=== PATIENT | female | born 1960 | race Caucasian/White ===

== ENCOUNTER 2021-09-04 14:26 | Inpatient (IN) | payer OTHER, SELFPAY ==
[~2021-09-04] VITALS: Ht 165.1 cm; Wt 132.5 kg
[2021-09-04 14:34] VITALS: BP_SYST 84
[2021-09-04] MEDS ORDERED: NACL 0.9% 1,000 ML IV ONE ×4 (14:45→23:45)
[2021-09-04 15:44] LABS: BILIRUBIN,URINE NEGATIVE (NEGATIVE); BLOOD, URINE 3+ (NEGATIVE); CLARITY/URINE CLEAR (CLEAR); COLOR,URINE YELLOW (YELLOW); GLUCOSE,URINE 3+ (NEGATIVE); KETONES,URINE 2+ (NEGATIVE); LEUKOCYTE ESTERASE ,URINE NEGATIVE (NEGATIVE); NITRITE, URINE NEGATIVE (NEGATIVE); PROTEIN URINE 1+ (NEGATIVE); UROBILINOGEN,URINE 0.2 (0.2-1.0)
[2021-09-04 15:53] LABS: BASOPHILS # (AUTO) 0.1 K/uL (0.0-0.2); BASOPHILS % (AUTO) 0.5 % (0.0-2.0); EOSINOPHILS # (AUTO) 0.2 K/uL (0.0-0.4); EOSINOPHILS % (AUTO) 0.7 % (0.0-4.0); HEMATOCRIT 43.1 % (36-48); HEMOGLOBIN 10.9 g/dL (12.0-16.0); LYMPHOCYTES # (AUTO) 2.4 K/uL (1.0-5.5); LYMPHOCYTES % (AUTO) 9.6 % (20.5-51.5); MEAN CORPUSCULAR HEMOGLOBIN 25 pg (27-31); MEAN CORPUSCULAR HGB CONC 25 % (32-36); MEAN CORPUSCULAR VOLUME 99 fL (79.0-98.0); MONOCYTES # (AUTO) 1.4 K/uL (0.0-1.0); MONOCYTES % (AUTO) 5.7 % (1.7-9.3); NEUTROPHILS # (AUTO) 20.5 K/uL (1.8-7.7); NEUTROPHILS % (AUTO) 83.5 % (40.0-70.0); PLATELET COUNT (AUTO) 378 K/uL (130-430); RED BLOOD CELL COUNT(AUTO) 4.34 MIL/uL (4.2-6.2); RED CELL DISTRIBUTION WIDTH 18.5 % (9.0-15.0); WHITE BLOOD COUNT (AUTO) 24.6 K/uL (4.8-10.8)
[2021-09-04 16:02] LABS: ANION GAP 28 (5-15); CALCIUM 8.4 mg/dL (8.4-11.0); CHLORIDE 92 mmol/L (98-107); CREATININE 2.62 mg/dL (0.55-1.30); SODIUM SERUM 126 mmol/L (136-145); UREA NITROGEN, BLOOD 55 mg/dL (8-21)
[2021-09-04 16:05] LABS: ALANINE AMINOTRANSFERASE 24 U/L (12-78); ALBUMIN 2.8 g/dL (3.4-4.8); ALCOHOL, BLOOD 3 mg/dL (<10); ASPARTATE AMINOTRANSFERASE 22 U/L (10-37); TOTAL BILIRUBIN 0.4 mg/dL (0.0-1.0)
[2021-09-04 16:19] LABS: ACETAMINOPHEN < 1 ug/mL (1-30)
[2021-09-04 16:20] LABS: BARBITURATE, URINE NEGATIVE (NEG <=200); BENZODIAZEPINE, URINE NEGATIVE (NEG <=150); CANNABINOID, URINE NEGATIVE (NEG <=50); COCAINE, URINE NEGATIVE (NEG <=150); METHAMPHETAMINES SCREEN,URINE NEGATIVE (NEG <=500); OPIATE, URINE NEGATIVE (NEG <=100); PHENCYCLIDINE SCREEN,URINE NEGATIVE (NEG <=25); UR TRICYCLIC ANTIDEPRESSANTS NEGATIVE (NEG <=300); URINE AMPHETAMINE NEGATIVE (NEG <=500); URINE METHADONE NEGATIVE (NEG <=200); URINE OXYCODONE SCREEN NEGATIVE (NEG <=100); URINE PROPOXYPHENE SCREEN NEGATIVE (NEG <=300)
[2021-09-04 16:21] LABS: BACTERIA,URINE RARE /HPF (None Seen); URINE AMORPHOUS URATE 1+ /HPF (None Seen); WBC,URINE 0-3 /HPF (0-3)
[2021-09-04 16:28] LABS: GFR AFRICAN AMERICAN 24 mL/min (>90)
[2021-09-04 16:31] LABS: POTASSIUM 8.1 mmol/L (3.5-5.1)
[2021-09-04 16:32] LABS: GLUCOSE 1081 mg/dL (70-99)
[2021-09-04] MEDS ORDERED: INSULIN NPH/REGULAR 70-30, 100 UNITS/ML, 10 ML VIAL SQ ONE (16:45)
[2021-09-04] MEDS ORDERED: SODIUM BICARBONATE 0.5 MEQ/ML VIAL INJ ONE (16:45)
[2021-09-04] MEDS ORDERED: CALCIUM GLUCONATE 1 GM/10 ML VIAL IVP ONE ×2 (16:45→22:15)
[2021-09-04] MEDS ORDERED: INSULIN REGULAR, HUMAN 100 UNITS in NS 99 ML IV ONE ×2 (16:45)
[2021-09-04] MEDS ORDERED: SODIUM BICARBONATE 8.4% JECT 50 MEQ/50 ML SYRINGE ONE (17:03)
[2021-09-04] MEDS ORDERED: CALCIUM GLUCONATE 1 GM in NS 100 ML IV ONE (17:15)
[2021-09-04] MEDS ORDERED: CEFEPIME 2 GM in D5W 100 ML IV ONE (17:45)
[2021-09-04] MEDS ORDERED: VANCOMYCIN HCL 1,000 MG in NS 250 ML IV ONE (17:45)
[2021-09-04] MEDS ORDERED: LR 1,000 ML IV ONE (18:00)
[2021-09-04] MEDS ORDERED: LORazepam 2 MG/ML VIAL IVP ONE (20:45)
[2021-09-04] MEDS ORDERED: VANCOMYCIN HCL 1000 MG/VIAL IV ONE (20:48)
[2021-09-04] MEDS ORDERED: CEFEPIME 1 GM/VIAL (MAXIPIME) ONE (20:49)
[2021-09-04 21:34] LABS: CALCIUM 8.4 mg/dL (8.4-11.0); CHLORIDE 93 mmol/L (98-107); CREATININE 2.89 mg/dL (0.55-1.30); SODIUM SERUM 128 mmol/L (136-145); UREA NITROGEN, BLOOD 60 mg/dL (8-21)
[2021-09-04] MEDS ORDERED: DEXTROSE 50% JECT 50 ML DISP.SYRIN IVP PRN (21:45)
[2021-09-04 21:46] LABS: ANION GAP 30 (5-15)
[2021-09-04 22:00] LABS: GFR AFRICAN AMERICAN 21 mL/min (>90)
[2021-09-04] MEDS ORDERED: LR 1,000 ML IV SCH (22:00)
[2021-09-04 22:06] LABS: POTASSIUM 7.2 mmol/L (3.5-5.1)
[2021-09-04 22:09] LABS: GLUCOSE 1027 mg/dL (70-99)
[2021-09-04] MEDS ORDERED: INSULIN REGULAR, HUMAN 100 UNITS/ML, 10 ML VIAL IV ONE (22:15)
[2021-09-04] MEDS ORDERED: ALBUTEROL SULFATE 0.083% 2.5 MG/3 ML VIAL.NEB INH ONE (22:15)
[2021-09-04] MEDS ORDERED: LR 2,000 ML IV SCH (22:30)
[2021-09-04 22:33] LABS: HEMATOCRIT 40.3 % (36-48); HEMOGLOBIN 10.7 g/dL (12.0-16.0); MEAN CORPUSCULAR HEMOGLOBIN 25 pg (27-31); MEAN CORPUSCULAR HGB CONC 27 % (32-36); MEAN CORPUSCULAR VOLUME 95 fL (79.0-98.0); PLATELET COUNT (AUTO) 299 K/uL (130-430); RED BLOOD CELL COUNT(AUTO) 4.23 MIL/uL (4.2-6.2); RED CELL DISTRIBUTION WIDTH 18.1 % (9.0-15.0); WHITE BLOOD COUNT (AUTO) 23.7 K/uL (4.8-10.8)
[2021-09-04 22:49] LABS: ANION GAP 29 (5-15); CALCIUM 8.3 mg/dL (8.4-11.0); CHLORIDE 96 mmol/L (98-107); SODIUM SERUM 131 mmol/L (136-145); UREA NITROGEN, BLOOD 59 mg/dL (8-21)
[2021-09-04 22:58] LABS: ALANINE AMINOTRANSFERASE 24 U/L (12-78); ALBUMIN 2.6 g/dL (3.4-4.8); ASPARTATE AMINOTRANSFERASE 38 U/L (10-37); GFR AFRICAN AMERICAN 21 mL/min (>90); PHOSPHORUS 10.6 mg/dL (2.7-4.5); TOTAL BILIRUBIN 0.4 mg/dL (0.0-1.0)
[2021-09-04 23:02] LABS: GLUCOSE 912 mg/dL (70-99); POTASSIUM 6.2 mmol/L (3.5-5.1)
[2021-09-04] MEDS ORDERED: INSULIN REGULAR, HUMAN 10 UNITS/0.1 ML INJ ONE (23:11)
[2021-09-04 23:25] LABS: ACETONE, SERUM MODERATE (NEGATIVE)
[2021-09-05] VITALS (20 sets, daily range): BP systolic 66–136
[2021-09-05 00:39] LABS: BASOPHILS % (MANUAL) 0 % (0-2); EOSINOPHILS % (MANUAL) 0 % (0-7); LYMPHOCYTES % (MANUAL) 8 % (20-46); MONOCYTES % (MANUAL) 2 % (0-11)
[2021-09-05] MEDS ORDERED: NOREPINEPHRINE 4 MG/4 ML VIAL IV ONE ×3 (01:16→20:22)
[2021-09-05] MEDS: INSULIN REGULAR, HUMAN 100 UNITS in NS 99 ML IV PRN ×4 (01:22→12:45)
[2021-09-05] MEDS: NOREPINEPHRINE BITARTRATE 4 MG in NS 246 ML IV PRN ×2 (01:53→05:32)
[2021-09-05] MEDS ORDERED: SODIUM BICARBONATE 8.4% JECT 50 MEQ/50 ML SYRINGE IVP ONE (02:00)
[2021-09-05] MEDS ORDERED: SODIUM BICARBONATE 8.4% JECT 50 MEQ/50 ML SYRINGE ONE (02:16)
[2021-09-05] MEDS ORDERED: LORazepam 2 MG/ML VIAL ONE (02:44)
[2021-09-05 02:58] LABS: BASOPHILS # (AUTO) 0.3 K/uL (0.0-0.2); EOSINOPHILS # (AUTO) 0.2 K/uL (0.0-0.4); EOSINOPHILS % (AUTO) 0.6 % (0.0-4.0); HEMATOCRIT 40.7 % (36-48); HEMOGLOBIN 11.6 g/dL (12.0-16.0); LYMPHOCYTES # (AUTO) 2.8 K/uL (1.0-5.5); LYMPHOCYTES % (AUTO) 8.7 % (20.5-51.5); MEAN CORPUSCULAR HEMOGLOBIN 26 pg (27-31); MEAN CORPUSCULAR HGB CONC 28 % (32-36); MEAN CORPUSCULAR VOLUME 90 fL (79.0-98.0); MONOCYTES # (AUTO) 1.3 K/uL (0.0-1.0); MONOCYTES % (AUTO) 3.9 % (1.7-9.3); NEUTROPHILS # (AUTO) 27.9 K/uL (1.8-7.7); NEUTROPHILS % (AUTO) 85.8 % (40.0-70.0); PLATELET COUNT (AUTO) 288 K/uL (130-430); RED BLOOD CELL COUNT(AUTO) 4.51 MIL/uL (4.2-6.2); RED CELL DISTRIBUTION WIDTH 18.2 % (9.0-15.0)
[2021-09-05 03:22] LABS: ALBUMIN 2.6 g/dL (3.4-4.8); CALCIUM 7.6 mg/dL (8.4-11.0); CREATININE 2.93 mg/dL (0.55-1.30); POTASSIUM 4.2 mmol/L (3.5-5.1); TOTAL BILIRUBIN 0.5 mg/dL (0.0-1.0)
[2021-09-05] MEDS: NACL 0.9% 1,000 ML IV SCH ×5 (03:30→17:11)
[2021-09-05 03:33] LABS: WHITE BLOOD COUNT (AUTO) 32.5 K/uL (4.8-10.8)
[2021-09-05 08:28] LABS: ALBUMIN 2.7 g/dL (3.4-4.8); CALCIUM 7.8 mg/dL (8.4-11.0); CREATININE 2.79 mg/dL (0.55-1.30); POTASSIUM 3.6 mmol/L (3.5-5.1); TOTAL BILIRUBIN 0.4 mg/dL (0.0-1.0)
[2021-09-05] MEDS ORDERED: PIPERACILLIN/TAZO 2.25G/DEX-IS 50 ML IV ONE (08:30)
[2021-09-05] MEDS: carisoprodoL 350 MG TABLET PO SCH ×3 (08:57→21:00)
[2021-09-05 09:36] LABS: BASOPHILS # (AUTO) 0.2 K/uL (0.0-0.2); BASOPHILS % (AUTO) 0.6 % (0.0-2.0); EOSINOPHILS # (AUTO) 0.3 K/uL (0.0-0.4); HEMATOCRIT 39.5 % (36-48); HEMOGLOBIN 11.8 g/dL (12.0-16.0); LYMPHOCYTES # (AUTO) 2.5 K/uL (1.0-5.5); LYMPHOCYTES % (AUTO) 9.3 % (20.5-51.5); MEAN CORPUSCULAR HEMOGLOBIN 25 pg (27-31); MEAN CORPUSCULAR HGB CONC 30 % (32-36); MONOCYTES # (AUTO) 1.1 K/uL (0.0-1.0); MONOCYTES % (AUTO) 4.2 % (1.7-9.3); NEUTROPHILS # (AUTO) 22.5 K/uL (1.8-7.7); NEUTROPHILS % (AUTO) 84.9 % (40.0-70.0); PLATELET COUNT (AUTO) 286 K/uL (130-430); RED BLOOD CELL COUNT(AUTO) 4.66 MIL/uL (4.2-6.2); RED CELL DISTRIBUTION WIDTH 17.4 % (9.0-15.0); WHITE BLOOD COUNT (AUTO) 26.5 K/uL (4.8-10.8)
[2021-09-05] MEDS: NOREPINEPHRINE BITARTRATE 16 MG in NS 234 ML IV PRN ×3 (10:28→20:27)
[2021-09-05 10:48] LABS: BASOPHILS # (AUTO) 0.1 K/uL (0.0-0.2); BASOPHILS % (AUTO) 0.6 % (0.0-2.0); EOSINOPHILS # (AUTO) 0.5 K/uL (0.0-0.4); EOSINOPHILS % (AUTO) 2.5 % (0.0-4.0); HEMATOCRIT 38.5 % (36-48); HEMOGLOBIN 11.9 g/dL (12.0-16.0); LYMPHOCYTES # (AUTO) 1.1 K/uL (1.0-5.5); LYMPHOCYTES % (AUTO) 5.7 % (20.5-51.5); MEAN CORPUSCULAR HEMOGLOBIN 25 pg (27-31); MEAN CORPUSCULAR HGB CONC 31 % (32-36); MEAN CORPUSCULAR VOLUME 82 fL (79.0-98.0); MONOCYTES % (AUTO) 5.6 % (1.7-9.3); NEUTROPHILS # (AUTO) 15.9 K/uL (1.8-7.7); NEUTROPHILS % (AUTO) 85.6 % (40.0-70.0); PLATELET COUNT (AUTO) 249 K/uL (130-430); RED BLOOD CELL COUNT(AUTO) 4.71 MIL/uL (4.2-6.2); RED CELL DISTRIBUTION WIDTH 17.3 % (9.0-15.0); WHITE BLOOD COUNT (AUTO) 18.6 K/uL (4.8-10.8)
[2021-09-05 10:52] LABS: MEAN CORPUSCULAR VOLUME 85 fL (79.0-98.0)
[2021-09-05 11:21] LABS: INR 0.9 (0.8-1.2); PROTHROMBIN TIME 9.9 SECS (9.5-12.5)
[2021-09-05 11:27] LABS: ALBUMIN 2.8 g/dL (3.4-4.8); CALCIUM 7.8 mg/dL (8.4-11.0); CREATININE 2.74 mg/dL (0.55-1.30); POTASSIUM 3.8 mmol/L (3.5-5.1); TOTAL BILIRUBIN 0.3 mg/dL (0.0-1.0)
[2021-09-05] MEDS ORDERED: NALOXONE HCL 0.4 MG/ML AMP (NARCAN) IVP PRN (12:00)
[2021-09-05] MEDS: PIPERACILLIN/TAZO 2.25G/DEX-IS 50 ML IV SCH ×3 (12:19→23:14)
[2021-09-05] MEDS: PROPOFOL DRIP 100 ML IV PRN ×2 (12:46→23:09)
[2021-09-05 12:49] LABS: BASOPHILS # (AUTO) 0.1 K/uL (0.0-0.2); BASOPHILS % (AUTO) 0.5 % (0.0-2.0); EOSINOPHILS # (AUTO) 0.2 K/uL (0.0-0.4); HEMATOCRIT 37.4 % (36-48); HEMOGLOBIN 11.7 g/dL (12.0-16.0); LYMPHOCYTES # (AUTO) 0.7 K/uL (1.0-5.5); LYMPHOCYTES % (AUTO) 4.3 % (20.5-51.5); MEAN CORPUSCULAR HEMOGLOBIN 25 pg (27-31); MEAN CORPUSCULAR HGB CONC 31 % (32-36); MEAN CORPUSCULAR VOLUME 81 fL (79.0-98.0); MONOCYTES # (AUTO) 1.5 K/uL (0.0-1.0); MONOCYTES % (AUTO) 8.8 % (1.7-9.3); NEUTROPHILS # (AUTO) 14.6 K/uL (1.8-7.7); NEUTROPHILS % (AUTO) 85.4 % (40.0-70.0); PLATELET COUNT (AUTO) 271 K/uL (130-430); RED BLOOD CELL COUNT(AUTO) 4.63 MIL/uL (4.2-6.2); RED CELL DISTRIBUTION WIDTH 16.5 % (9.0-15.0); WHITE BLOOD COUNT (AUTO) 17.1 K/uL (4.8-10.8)
[2021-09-05 13:08] LABS: ALBUMIN 2.7 g/dL (3.4-4.8); CALCIUM 7.7 mg/dL (8.4-11.0); CREATININE 2.61 mg/dL (0.55-1.30); POTASSIUM 3.6 mmol/L (3.5-5.1); TOTAL BILIRUBIN 0.4 mg/dL (0.0-1.0)
[2021-09-05 19:09] LABS: HEMOGLOBIN 11.8 g/dL (12.0-16.0); MEAN CORPUSCULAR HEMOGLOBIN 25 pg (27-31); MEAN CORPUSCULAR HGB CONC 31 % (32-36); MEAN CORPUSCULAR VOLUME 81 fL (79.0-98.0); PLATELET COUNT (AUTO) 220 K/uL (130-430); RED BLOOD CELL COUNT(AUTO) 4.68 MIL/uL (4.2-6.2); RED CELL DISTRIBUTION WIDTH 17.4 % (9.0-15.0); WHITE BLOOD COUNT (AUTO) 12.3 K/uL (4.8-10.8)
[2021-09-05 19:23] LABS: ALBUMIN 2.5 g/dL (3.4-4.8); CALCIUM 7.6 mg/dL (8.4-11.0); CREATININE 2.68 mg/dL (0.55-1.30); POTASSIUM 4.2 mmol/L (3.5-5.1); TOTAL BILIRUBIN 0.4 mg/dL (0.0-1.0)
[2021-09-05] MEDS: BUDESONIDE 0.5 MG/2 ML AMPUL.NEB INH SCH (19:46)
[2021-09-05 20:30] LABS: BAND % (MANUAL) 10 % (0-6); BASOPHILS % (MANUAL) 0 % (0-2); EOSINOPHILS % (MANUAL) 0 % (0-7); LYMPHOCYTES % (MANUAL) 2 % (20-46); MONOCYTES % (MANUAL) 5 % (0-11)
[2021-09-05 23:53] LABS: HEMOGLOBIN 10.7 g/dL (12.0-16.0)
[2021-09-05 23:59] LABS: BASOPHILS % (AUTO) 0.2 % (0.0-2.0); EOSINOPHILS # (AUTO) 0.4 K/uL (0.0-0.4); EOSINOPHILS % (AUTO) 3.6 % (0.0-4.0); HEMATOCRIT 33.9 % (36-48); LYMPHOCYTES # (AUTO) 0.5 K/uL (1.0-5.5); LYMPHOCYTES % (AUTO) 3.8 % (20.5-51.5); MEAN CORPUSCULAR HEMOGLOBIN 25 pg (27-31); MEAN CORPUSCULAR HGB CONC 32 % (32-36); MEAN CORPUSCULAR VOLUME 80 fL (79.0-98.0); MONOCYTES # (AUTO) 0.7 K/uL (0.0-1.0); MONOCYTES % (AUTO) 5.8 % (1.7-9.3); NEUTROPHILS # (AUTO) 10.7 K/uL (1.8-7.7); NEUTROPHILS % (AUTO) 86.6 % (40.0-70.0); PLATELET COUNT (AUTO) 206 K/uL (130-430); RED BLOOD CELL COUNT(AUTO) 4.23 MIL/uL (4.2-6.2); WHITE BLOOD COUNT (AUTO) 12.4 K/uL (4.8-10.8)
[2021-09-06] VITALS (29 sets, daily range): BP systolic 90–160
[2021-09-06 00:10] LABS: ALBUMIN 2.5 g/dL (3.4-4.8); CALCIUM 7.3 mg/dL (8.4-11.0); CREATININE 2.9 mg/dL (0.55-1.30); POTASSIUM 3.9 mmol/L (3.5-5.1); TOTAL BILIRUBIN 0.4 mg/dL (0.0-1.0)
[2021-09-06] MEDS: NACL 0.9% 1,000 ML IV SCH ×4 (01:10→21:10)
[2021-09-06 02:24] LABS: BASOPHILS # (AUTO) 0.1 K/uL (0.0-0.2); BASOPHILS % (AUTO) 1.1 % (0.0-2.0); EOSINOPHILS # (AUTO) 0.4 K/uL (0.0-0.4); EOSINOPHILS % (AUTO) 3.4 % (0.0-4.0); HEMATOCRIT 34.9 % (36-48); HEMOGLOBIN 11.5 g/dL (12.0-16.0); LYMPHOCYTES # (AUTO) 0.6 K/uL (1.0-5.5); LYMPHOCYTES % (AUTO) 4.6 % (20.5-51.5); MEAN CORPUSCULAR HEMOGLOBIN 26 pg (27-31); MEAN CORPUSCULAR HGB CONC 33 % (32-36); MEAN CORPUSCULAR VOLUME 80 fL (79.0-98.0); MONOCYTES # (AUTO) 0.7 K/uL (0.0-1.0); NEUTROPHILS # (AUTO) 10.3 K/uL (1.8-7.7); NEUTROPHILS % (AUTO) 84.9 % (40.0-70.0); PLATELET COUNT (AUTO) 195 K/uL (130-430); RED BLOOD CELL COUNT(AUTO) 4.37 MIL/uL (4.2-6.2); RED CELL DISTRIBUTION WIDTH 17.5 % (9.0-15.0); WHITE BLOOD COUNT (AUTO) 12.1 K/uL (4.8-10.8)
[2021-09-06] MEDS: PROPOFOL DRIP 100 ML IV PRN ×5 (02:52→17:26)
[2021-09-06 03:00] LABS: ALBUMIN 2.4 g/dL (3.4-4.8); CALCIUM 7.6 mg/dL (8.4-11.0); CREATININE 3.04 mg/dL (0.55-1.30); TOTAL BILIRUBIN 0.5 mg/dL (0.0-1.0)
[2021-09-06] MEDS: PIPERACILLIN/TAZO 2.25G/DEX-IS 50 ML IV SCH ×3 (05:11→18:35)
[2021-09-06] MEDS ORDERED: NOREPINEPHRINE 4 MG/4 ML VIAL IV ONE (06:28)
[2021-09-06] MEDS: NOREPINEPHRINE BITARTRATE 16 MG in NS 234 ML IV PRN ×2 (06:33→14:19)
[2021-09-06 07:24] LABS: BASOPHILS # (AUTO) 0.1 K/uL (0.0-0.2); BASOPHILS % (AUTO) 0.6 % (0.0-2.0); EOSINOPHILS # (AUTO) 0.3 K/uL (0.0-0.4); EOSINOPHILS % (AUTO) 2.2 % (0.0-4.0); HEMATOCRIT 31.1 % (36-48); HEMOGLOBIN 11.4 g/dL (12.0-16.0); LYMPHOCYTES # (AUTO) 0.6 K/uL (1.0-5.5); LYMPHOCYTES % (AUTO) 5.3 % (20.5-51.5); MEAN CORPUSCULAR HEMOGLOBIN 29 pg (27-31); MEAN CORPUSCULAR HGB CONC 37 % (32-36); MEAN CORPUSCULAR VOLUME 80 fL (79.0-98.0); MONOCYTES # (AUTO) 0.6 K/uL (0.0-1.0); MONOCYTES % (AUTO) 5.6 % (1.7-9.3); NEUTROPHILS # (AUTO) 10.1 K/uL (1.8-7.7); NEUTROPHILS % (AUTO) 86.3 % (40.0-70.0); PLATELET COUNT (AUTO) 174 K/uL (130-430); RED CELL DISTRIBUTION WIDTH 17.1 % (9.0-15.0); WHITE BLOOD COUNT (AUTO) 11.7 K/uL (4.8-10.8)
[2021-09-06] MEDS: BUDESONIDE 0.5 MG/2 ML AMPUL.NEB INH SCH ×2 (07:27→19:45)
[2021-09-06 08:14] LABS: ALBUMIN 2.4 g/dL (3.4-4.8); CALCIUM 7.5 mg/dL (8.4-11.0); CREATININE 3.22 mg/dL (0.55-1.30); POTASSIUM 4.1 mmol/L (3.5-5.1); TOTAL BILIRUBIN 0.3 mg/dL (0.0-1.0)
[2021-09-06] MEDS: carisoprodoL 350 MG TABLET PO SCH ×3 (09:00→20:22)
[2021-09-06 11:06] LABS: BASOPHILS % (AUTO) 0.3 % (0.0-2.0); HEMATOCRIT 33.5 % (36-48); HEMOGLOBIN 10.7 g/dL (12.0-16.0); LYMPHOCYTES # (AUTO) 0.6 K/uL (1.0-5.5); LYMPHOCYTES % (AUTO) 5.1 % (20.5-51.5); MEAN CORPUSCULAR HEMOGLOBIN 26 pg (27-31); MEAN CORPUSCULAR HGB CONC 32 % (32-36); MEAN CORPUSCULAR VOLUME 81 fL (79.0-98.0); MONOCYTES # (AUTO) 0.7 K/uL (0.0-1.0); MONOCYTES % (AUTO) 6.6 % (1.7-9.3); NEUTROPHILS # (AUTO) 9.9 K/uL (1.8-7.7); PLATELET COUNT (AUTO) 127 K/uL (130-430); RED BLOOD CELL COUNT(AUTO) 4.14 MIL/uL (4.2-6.2); RED CELL DISTRIBUTION WIDTH 17.3 % (9.0-15.0); WHITE BLOOD COUNT (AUTO) 11.3 K/uL (4.8-10.8)
[2021-09-06] MEDS: INSULIN REGULAR, HUMAN 100 UNITS in NS 99 ML IV PRN ×2 (11:12)
[2021-09-06 12:07] LABS: CREATININE 3.4 mg/dL (0.55-1.30); POTASSIUM 4.3 mmol/L (3.5-5.1); TOTAL BILIRUBIN 0.4 mg/dL (0.0-1.0)
[2021-09-06 12:23] LABS: CALCIUM 6.9 mg/dL (8.4-11.0)
[2021-09-06] MEDS ORDERED: CALCIUM CHLORIDE 1 GM in NS 100 ML IV ONE (14:00)
[2021-09-06] MEDS ORDERED: VANCOMYCIN HCL 1,000 MG in NS 250 ML IV ONE (15:00)
[2021-09-06 18:37] LABS: BASOPHILS % (AUTO) 0.2 % (0.0-2.0); EOSINOPHILS % (AUTO) 0.1 % (0.0-4.0); LYMPHOCYTES # (AUTO) 0.6 K/uL (1.0-5.5); MONOCYTES # (AUTO) 0.8 K/uL (0.0-1.0)
[2021-09-06 18:44] LABS: HEMOGLOBIN 11.5 g/dL (12.0-16.0); LYMPHOCYTES % (AUTO) 3.9 % (20.5-51.5); MEAN CORPUSCULAR HEMOGLOBIN 26 pg (27-31); MEAN CORPUSCULAR HGB CONC 32 % (32-36); MEAN CORPUSCULAR VOLUME 80 fL (79.0-98.0); MONOCYTES % (AUTO) 5.9 % (1.7-9.3); NEUTROPHILS # (AUTO) 12.6 K/uL (1.8-7.7); NEUTROPHILS % (AUTO) 89.9 % (40.0-70.0); PLATELET COUNT (AUTO) 116 K/uL (130-430); RED BLOOD CELL COUNT(AUTO) 4.48 MIL/uL (4.2-6.2); RED CELL DISTRIBUTION WIDTH 18.1 % (9.0-15.0)
[2021-09-07] VITALS (30 sets, daily range): BP systolic 97–133
[2021-09-07 05:38] LABS: BASOPHILS # (AUTO) 0.1 K/uL (0.0-0.2); BASOPHILS % (AUTO) 0.4 % (0.0-2.0); EOSINOPHILS # (AUTO) 0.1 K/uL (0.0-0.4); HEMATOCRIT 32.7 % (36-48); HEMOGLOBIN 10.5 g/dL (12.0-16.0); LYMPHOCYTES # (AUTO) 0.5 K/uL (1.0-5.5); LYMPHOCYTES % (AUTO) 3.5 % (20.5-51.5); MEAN CORPUSCULAR HEMOGLOBIN 26 pg (27-31); MEAN CORPUSCULAR HGB CONC 32 % (32-36); MEAN CORPUSCULAR VOLUME 80 fL (79.0-98.0); MONOCYTES # (AUTO) 0.7 K/uL (0.0-1.0); NEUTROPHILS # (AUTO) 12.7 K/uL (1.8-7.7); NEUTROPHILS % (AUTO) 90.1 % (40.0-70.0); PLATELET COUNT (AUTO) 102 K/uL (130-430); RED BLOOD CELL COUNT(AUTO) 4.08 MIL/uL (4.2-6.2); RED CELL DISTRIBUTION WIDTH 17.8 % (9.0-15.0); WHITE BLOOD COUNT (AUTO) 14.1 K/uL (4.8-10.8)
[2021-09-07 06:10] LABS: ALBUMIN 1.8 g/dL (3.4-4.8); CALCIUM 7.8 mg/dL (8.4-11.0); CREATININE 4.71 mg/dL (0.55-1.30); POTASSIUM 5.1 mmol/L (3.5-5.1); TOTAL BILIRUBIN 0.5 mg/dL (0.0-1.0)
[2021-09-07] MEDS: PIPERACILLIN/TAZO 2.25G/DEX-IS 50 ML IV SCH ×4 (06:42→18:10)
[2021-09-07] MEDS: PROPOFOL DRIP 100 ML IV PRN ×4 (08:05→18:50)
[2021-09-07] MEDS: INSULIN REGULAR, HUMAN 100 UNITS in NS 99 ML IV PRN ×2 (08:26)
[2021-09-07] MEDS: carisoprodoL 350 MG TABLET PO SCH ×3 (09:00→21:24)
[2021-09-07] MEDS: BUDESONIDE 0.5 MG/2 ML AMPUL.NEB INH SCH ×2 (09:15→19:14)
[2021-09-07] MEDS: NACL 0.9% 1,000 ML IV SCH ×3 (11:27→23:50)
[2021-09-07] MEDS ORDERED: ALBUMIN HUMAN 25% 100 ML IV ONE (13:30)
[2021-09-07] MEDS ORDERED: MORPHINE SULFATE IN 0.9 % NACL 100 ML IV ONE (13:41)
[2021-09-07] MEDS: MORPHINE SULFATE IN 0.9 % NACL 100 ML IV PRN (13:41)
[2021-09-07] MEDS ORDERED: HEPARIN SODIUM,PORCINE 5,000 UNITS/ML VIAL MC ONE (14:15)
[2021-09-07] MEDS ORDERED: METOPROLOL TARTRATE 5 MG/5 ML AMPUL IVP ONE (18:30)
[2021-09-07] MEDS: METOPROLOL TARTRATE 5 MG/5 ML AMPUL IVP PRN (20:11)
[2021-09-07] MEDS: NOREPINEPHRINE BITARTRATE 16 MG in NS 234 ML IV PRN (21:28)
[2021-09-08] VITALS (28 sets, daily range): BP systolic 91–172
[2021-09-08] MEDS: PROPOFOL DRIP 100 ML IV PRN ×5 (00:19→22:18)
[2021-09-08] MEDS: METOPROLOL TARTRATE 5 MG/5 ML AMPUL IVP PRN (00:27)
[2021-09-08] MEDS: PIPERACILLIN/TAZO 2.25G/DEX-IS 50 ML IV SCH ×5 (00:29→23:04)
[2021-09-08] MEDS: NACL 0.9% 1,000 ML IV SCH ×3 (01:10→19:40)
[2021-09-08] MEDS: MORPHINE SULFATE IN 0.9 % NACL 100 ML IV PRN (02:59)
[2021-09-08] MEDS: NOREPINEPHRINE BITARTRATE 16 MG in NS 234 ML IV PRN ×2 (05:42→18:26)
[2021-09-08 06:54] LABS: BASOPHILS % (AUTO) 0.3 % (0.0-2.0); EOSINOPHILS % (AUTO) 0.2 % (0.0-4.0); HEMATOCRIT 30.8 % (36-48); HEMOGLOBIN 9.9 g/dL (12.0-16.0); LYMPHOCYTES # (AUTO) 0.7 K/uL (1.0-5.5); LYMPHOCYTES % (AUTO) 5.2 % (20.5-51.5); MEAN CORPUSCULAR HEMOGLOBIN 26 pg (27-31); MEAN CORPUSCULAR HGB CONC 32 % (32-36); MEAN CORPUSCULAR VOLUME 80 fL (79.0-98.0); MONOCYTES # (AUTO) 0.7 K/uL (0.0-1.0); MONOCYTES % (AUTO) 4.9 % (1.7-9.3); NEUTROPHILS # (AUTO) 11.9 K/uL (1.8-7.7); NEUTROPHILS % (AUTO) 89.4 % (40.0-70.0); PLATELET COUNT (AUTO) 76 K/uL (130-430); RED BLOOD CELL COUNT(AUTO) 3.87 MIL/uL (4.2-6.2); RED CELL DISTRIBUTION WIDTH 17.9 % (9.0-15.0); WHITE BLOOD COUNT (AUTO) 13.4 K/uL (4.8-10.8)
[2021-09-08] MEDS: BUDESONIDE 0.5 MG/2 ML AMPUL.NEB INH SCH ×2 (07:20→20:14)
[2021-09-08 07:23] LABS: CALCIUM 7.3 mg/dL (8.4-11.0); CREATININE 4.69 mg/dL (0.55-1.30); POTASSIUM 4.8 mmol/L (3.5-5.1); VANCOMYCIN,RANDOM 15.9 ug/mL
[2021-09-08] MEDS: INSULIN REGULAR, HUMAN 100 UNITS in NS 99 ML IV PRN ×2 (08:08)
[2021-09-08] MEDS: carisoprodoL 350 MG TABLET PO SCH (08:14)
[2021-09-08] MEDS: HEPARIN SODIUM,PORCINE 5,000 UNITS/ML VIAL SUBCUT SCH (09:00)
[2021-09-08 11:17] LABS: CKMB RELATIVE INDEX 0.8 (0.0-2.9); CREATINE KINASE MB 14.2 ng/mL (0-3.6)
[2021-09-08] MEDS ORDERED: ALBUMIN HUMAN 25% 100 ML IV ONE (15:12)
[2021-09-08] MEDS ORDERED: ALBUMIN HUMAN 25% 50 ML IV ONE (15:15)
[2021-09-08] MEDS ORDERED: VANCOMYCIN HCL 1 GM/NS PREMIX 250 ML IV ONE (17:00)
[2021-09-09] VITALS (32 sets, daily range): BP systolic 82–132
[2021-09-09] MEDS: NOREPINEPHRINE BITARTRATE 16 MG in NS 234 ML IV PRN ×2 (00:53→13:00)
[2021-09-09] MEDS: NACL 0.9% 1,000 ML IV SCH ×3 (04:28→22:30)
[2021-09-09] MEDS: PIPERACILLIN/TAZO 2.25G/DEX-IS 50 ML IV SCH ×4 (04:54→23:11)
[2021-09-09] MEDS: MORPHINE SULFATE IN 0.9 % NACL 100 ML IV PRN (05:56)
[2021-09-09] MEDS: BUDESONIDE 0.5 MG/2 ML AMPUL.NEB INH SCH ×2 (07:27→19:31)
[2021-09-09 08:42] LABS: ALBUMIN 1.4 g/dL (3.4-4.8); CALCIUM 7.5 mg/dL (8.4-11.0); CREATININE 4.77 mg/dL (0.55-1.30); POTASSIUM 4.1 mmol/L (3.5-5.1); TOTAL BILIRUBIN 1.9 mg/dL (0.0-1.0)
[2021-09-09] MEDS: HEPARIN SODIUM,PORCINE 5,000 UNITS/ML VIAL SUBCUT SCH ×2 (09:00→20:54)
[2021-09-09 09:04] LABS: HEMATOCRIT 27.4 % (36-48); HEMOGLOBIN 9.5 g/dL (12.0-16.0); MEAN CORPUSCULAR HEMOGLOBIN 27 pg (27-31); MEAN CORPUSCULAR HGB CONC 35 % (32-36); MEAN CORPUSCULAR VOLUME 79 fL (79.0-98.0); PLATELET COUNT (AUTO) 201 K/uL (130-430); RED BLOOD CELL COUNT(AUTO) 3.49 MIL/uL (4.2-6.2); RED CELL DISTRIBUTION WIDTH 18.5 % (9.0-15.0)
[2021-09-09] MEDS ORDERED: HEPARIN SODIUM,PORCINE 5,000 UNITS/ML VIAL ONE ×2 (09:47→15:48)
[2021-09-09] MEDS: INSULIN REGULAR, HUMAN 100 UNITS in NS 99 ML IV PRN ×2 (10:12)
[2021-09-09 12:27] LABS: WHITE BLOOD COUNT (AUTO) 15.3 K/uL (4.8-10.8)
[2021-09-09] MEDS: PROPOFOL DRIP 100 ML IV PRN ×2 (14:07→21:40)
[2021-09-09] MEDS ORDERED: HEPARIN SODIUM,PORCINE 5,000 UNITS/ML VIAL MC ONE (16:30)
[2021-09-09 17:00] LABS: BAND % (MANUAL) 3 % (0-6); BASOPHILS % (MANUAL) 0 % (0-2); EOSINOPHILS % (MANUAL) 1 % (0-7); LYMPHOCYTES % (MANUAL) 3 % (20-46); MONOCYTES % (MANUAL) 3 % (0-11)
[2021-09-09] MEDS: METOPROLOL TARTRATE 5 MG/5 ML AMPUL IVP PRN (21:29)
[2021-09-10] VITALS (30 sets, daily range): BP systolic 82–135
[2021-09-10] MEDS: PROPOFOL DRIP 100 ML IV PRN ×2 (00:05→07:33)
[2021-09-10] MEDS: MORPHINE SULFATE IN 0.9 % NACL 100 ML IV PRN (03:35)
[2021-09-10] MEDS: NOREPINEPHRINE BITARTRATE 16 MG in NS 234 ML IV PRN ×2 (03:39→22:08)
[2021-09-10] MEDS: INSULIN REGULAR, HUMAN 100 UNITS in NS 99 ML IV PRN ×2 (04:34)
[2021-09-10] MEDS: NACL 0.9% 1,000 ML IV SCH ×2 (05:10→15:35)
[2021-09-10] MEDS: PIPERACILLIN/TAZO 2.25G/DEX-IS 50 ML IV SCH ×3 (05:23→17:09)
[2021-09-10] MEDS: BUDESONIDE 0.5 MG/2 ML AMPUL.NEB INH SCH ×2 (07:24→20:10)
[2021-09-10 07:37] LABS: BASOPHILS # (AUTO) 0.1 K/uL (0.0-0.2); BASOPHILS % (AUTO) 0.5 % (0.0-2.0); EOSINOPHILS # (AUTO) 0.3 K/uL (0.0-0.4); EOSINOPHILS % (AUTO) 2.5 % (0.0-4.0); HEMOGLOBIN 9.4 g/dL (12.0-16.0); LYMPHOCYTES # (AUTO) 0.9 K/uL (1.0-5.5); LYMPHOCYTES % (AUTO) 7.9 % (20.5-51.5); MEAN CORPUSCULAR HEMOGLOBIN 26 pg (27-31); MEAN CORPUSCULAR HGB CONC 32 % (32-36); MEAN CORPUSCULAR VOLUME 79 fL (79.0-98.0); MONOCYTES # (AUTO) 1.1 K/uL (0.0-1.0); MONOCYTES % (AUTO) 9.7 % (1.7-9.3); NEUTROPHILS # (AUTO) 8.9 K/uL (1.8-7.7); NEUTROPHILS % (AUTO) 79.4 % (40.0-70.0); PLATELET COUNT (AUTO) 95 K/uL (130-430); RED BLOOD CELL COUNT(AUTO) 3.65 MIL/uL (4.2-6.2)
[2021-09-10 07:47] LABS: CALCIUM 7.6 mg/dL (8.4-11.0); CREATININE 3.58 mg/dL (0.55-1.30)
[2021-09-10 08:23] LABS: WHITE BLOOD COUNT (AUTO) 11.2 K/uL (4.8-10.8)
[2021-09-10 08:39] LABS: VANCOMYCIN,RANDOM 18.9 ug/mL
[2021-09-10] MEDS: HEPARIN SODIUM,PORCINE 5,000 UNITS/ML VIAL SUBCUT SCH ×2 (09:32→20:18)
[2021-09-11] VITALS (29 sets, daily range): BP systolic 94–143
[2021-09-11] MEDS: PIPERACILLIN/TAZO 2.25G/DEX-IS 50 ML IV SCH ×4 (00:14→18:28)
[2021-09-11] MEDS: NACL 0.9% 1,000 ML IV SCH ×3 (00:15→15:38)
[2021-09-11] MEDS: INSULIN REGULAR, HUMAN 100 UNITS in NS 99 ML IV PRN ×2 (02:10)
[2021-09-11] MEDS: BUDESONIDE 0.5 MG/2 ML AMPUL.NEB INH SCH ×2 (07:21→18:27)
[2021-09-11 08:18] LABS: CALCIUM 7.5 mg/dL (8.4-11.0); CREATININE 4.98 mg/dL (0.55-1.30); POTASSIUM 4.7 mmol/L (3.5-5.1); VANCOMYCIN,RANDOM 16.1 ug/mL
[2021-09-11 08:57] LABS: BASOPHILS # (AUTO) 0.1 K/uL (0.0-0.2); BASOPHILS % (AUTO) 0.5 % (0.0-2.0); EOSINOPHILS # (AUTO) 0.3 K/uL (0.0-0.4); HEMOGLOBIN 9.6 g/dL (12.0-16.0); LYMPHOCYTES # (AUTO) 1.2 K/uL (1.0-5.5); LYMPHOCYTES % (AUTO) 9.2 % (20.5-51.5); MEAN CORPUSCULAR HEMOGLOBIN 25 pg (27-31); MEAN CORPUSCULAR HGB CONC 32 % (32-36); MEAN CORPUSCULAR VOLUME 79 fL (79.0-98.0); MONOCYTES # (AUTO) 1.3 K/uL (0.0-1.0); MONOCYTES % (AUTO) 10.1 % (1.7-9.3); NEUTROPHILS # (AUTO) 10.1 K/uL (1.8-7.7); NEUTROPHILS % (AUTO) 78.2 % (40.0-70.0); PLATELET COUNT (AUTO) 140 K/uL (130-430); RED BLOOD CELL COUNT(AUTO) 3.81 MIL/uL (4.2-6.2); RED CELL DISTRIBUTION WIDTH 18.3 % (9.0-15.0)
[2021-09-11] MEDS ORDERED: INSULIN REGULAR, HUMAN 100 UNITS in NS 99 ML IV SCH ×2 (09:13)
[2021-09-11 09:17] LABS: WHITE BLOOD COUNT (AUTO) 12.9 K/uL (4.8-10.8)
[2021-09-11] MEDS: HEPARIN SODIUM,PORCINE 5,000 UNITS/ML VIAL SUBCUT SCH ×2 (09:19→21:50)
[2021-09-11] MEDS ORDERED: HEPARIN SODIUM,PORCINE 5,000 UNITS/ML VIAL IVP ONE (13:00)
[2021-09-11] MEDS: NOREPINEPHRINE BITARTRATE 16 MG in NS 234 ML IV PRN (15:37)
[2021-09-11] MEDS ORDERED: VANCOMYCIN HCL 1 GM/NS PREMIX 250 ML IV ONE (17:00)
[2021-09-12] VITALS (33 sets, daily range): BP systolic 88–131
[2021-09-12] MEDS: PIPERACILLIN/TAZO 2.25G/DEX-IS 50 ML IV SCH ×2 (00:07→06:15)
[2021-09-12] MEDS: NACL 0.9% 1,000 ML IV SCH ×2 (04:36→14:39)
[2021-09-12 06:12] LABS: BASOPHILS # (AUTO) 0.1 K/uL (0.0-0.2); BASOPHILS % (AUTO) 0.5 % (0.0-2.0); EOSINOPHILS # (AUTO) 0.4 K/uL (0.0-0.4); EOSINOPHILS % (AUTO) 1.8 % (0.0-4.0); HEMATOCRIT 27.2 % (36-48); HEMOGLOBIN 9.4 g/dL (12.0-16.0); LYMPHOCYTES # (AUTO) 1.3 K/uL (1.0-5.5); LYMPHOCYTES % (AUTO) 5.6 % (20.5-51.5); MEAN CORPUSCULAR HEMOGLOBIN 27 pg (27-31); MEAN CORPUSCULAR HGB CONC 35 % (32-36); MEAN CORPUSCULAR VOLUME 78 fL (79.0-98.0); MONOCYTES % (AUTO) 4.3 % (1.7-9.3); NEUTROPHILS # (AUTO) 20.4 K/uL (1.8-7.7); NEUTROPHILS % (AUTO) 87.8 % (40.0-70.0); PLATELET COUNT (AUTO) 250 K/uL (130-430); RED BLOOD CELL COUNT(AUTO) 3.47 MIL/uL (4.2-6.2); RED CELL DISTRIBUTION WIDTH 17.8 % (9.0-15.0); WHITE BLOOD COUNT (AUTO) 23.2 K/uL (4.8-10.8)
[2021-09-12 06:41] LABS: CREATININE 4.23 mg/dL (0.55-1.30); POTASSIUM 5.4 mmol/L (3.5-5.1)
[2021-09-12] MEDS: BUDESONIDE 0.5 MG/2 ML AMPUL.NEB INH SCH ×2 (07:16→19:15)
[2021-09-12] MEDS: NOREPINEPHRINE BITARTRATE 16 MG in NS 234 ML IV PRN (08:20)
[2021-09-12] MEDS: PANTOPRAZOLE SODIUM 40 MG/VIAL (PROTONIX) IVP SCH (10:10)
[2021-09-12] MEDS: HEPARIN SODIUM,PORCINE 5,000 UNITS/ML VIAL SUBCUT SCH ×2 (10:23→20:38)
[2021-09-12] MEDS: PROPOFOL DRIP 100 ML IV PRN (17:41)
[2021-09-12] MEDS ORDERED: HEPARIN SODIUM,PORCINE 5,000 UNITS/ML VIAL IVP ONE (20:15)
[2021-09-12] MEDS: METOPROLOL TARTRATE 5 MG/5 ML AMPUL IVP PRN (22:54)
[2021-09-13] VITALS (31 sets, daily range): BP systolic 72–131
[2021-09-13] MEDS: NOREPINEPHRINE BITARTRATE 16 MG in NS 234 ML IV PRN ×2 (00:23→14:49)
[2021-09-13] MEDS: NACL 0.9% 1,000 ML IV SCH ×3 (01:13→21:02)
[2021-09-13] MEDS: METOPROLOL TARTRATE 5 MG/5 ML AMPUL IVP PRN (03:01)
[2021-09-13] MEDS: PROPOFOL DRIP 100 ML IV PRN ×3 (03:03→17:47)
[2021-09-13] MEDS: BUDESONIDE 0.5 MG/2 ML AMPUL.NEB INH SCH ×2 (07:15→19:26)
[2021-09-13 07:55] LABS: CREATININE 3.78 mg/dL (0.55-1.30); POTASSIUM 5.3 mmol/L (3.5-5.1)
[2021-09-13 08:16] LABS: BASOPHILS # (AUTO) 0.1 K/uL (0.0-0.2); BASOPHILS % (AUTO) 0.3 % (0.0-2.0); EOSINOPHILS # (AUTO) 0.2 K/uL (0.0-0.4); EOSINOPHILS % (AUTO) 0.9 % (0.0-4.0); HEMATOCRIT 26.3 % (36-48); HEMOGLOBIN 8.6 g/dL (12.0-16.0); LYMPHOCYTES # (AUTO) 0.7 K/uL (1.0-5.5); LYMPHOCYTES % (AUTO) 4.2 % (20.5-51.5); MEAN CORPUSCULAR HEMOGLOBIN 26 pg (27-31); MEAN CORPUSCULAR HGB CONC 33 % (32-36); MEAN CORPUSCULAR VOLUME 78 fL (79.0-98.0); MONOCYTES # (AUTO) 0.7 K/uL (0.0-1.0); MONOCYTES % (AUTO) 4.5 % (1.7-9.3); NEUTROPHILS # (AUTO) 14.6 K/uL (1.8-7.7); NEUTROPHILS % (AUTO) 90.1 % (40.0-70.0); PLATELET COUNT (AUTO) 224 K/uL (130-430); RED BLOOD CELL COUNT(AUTO) 3.35 MIL/uL (4.2-6.2); RED CELL DISTRIBUTION WIDTH 18.6 % (9.0-15.0); WHITE BLOOD COUNT (AUTO) 16.3 K/uL (4.8-10.8)
[2021-09-13 08:38] LABS: CALCIUM 6.8 mg/dL (8.4-11.0)
[2021-09-13] MEDS: PANTOPRAZOLE SODIUM 40 MG/VIAL (PROTONIX) IVP SCH (08:44)
[2021-09-13] MEDS: HEPARIN SODIUM,PORCINE 5,000 UNITS/ML VIAL SUBCUT SCH ×2 (08:46→21:13)
[2021-09-13] MEDS ORDERED: AMIODARONE HCL 200 MG TABLET PO SCH (09:00)
[2021-09-13] MEDS ORDERED: CALCIUM CHLORIDE 1 GM in NS 100 ML IV ONE (11:45)
[2021-09-13] MEDS ORDERED: AMIODARONE HCL 200 MG TABLET PO ONE (12:30)
[2021-09-13 13:08] LABS: VANCOMYCIN,RANDOM 16.4 ug/mL
[2021-09-13] MEDS: AMIODARONE HCL 200 MG TABLET PO SCH (21:03)
[2021-09-13] MEDS ORDERED: NOREPINEPHRINE 4 MG/4 ML VIAL IV ONE (21:28)
[2021-09-14] VITALS (31 sets, daily range): BP systolic 101–142
[2021-09-14] MEDS: NOREPINEPHRINE BITARTRATE 16 MG in NS 234 ML IV PRN (05:28)
[2021-09-14] MEDS: AMIODARONE HCL 200 MG TABLET PO SCH ×3 (05:34→21:32)
[2021-09-14] MEDS: INSULIN REGULAR, HUMAN 100 UNITS in NS 99 ML IV PRN ×2 (05:54)
[2021-09-14] MEDS: NACL 0.9% 1,000 ML IV SCH ×2 (06:18→17:22)
[2021-09-14 07:00] LABS: BASOPHILS % (AUTO) 0.3 % (0.0-2.0); EOSINOPHILS # (AUTO) 0.2 K/uL (0.0-0.4); HEMOGLOBIN 8.5 g/dL (12.0-16.0); LYMPHOCYTES # (AUTO) 0.9 K/uL (1.0-5.5); LYMPHOCYTES % (AUTO) 5.1 % (20.5-51.5); MEAN CORPUSCULAR HEMOGLOBIN 25 pg (27-31); MEAN CORPUSCULAR HGB CONC 33 % (32-36); MEAN CORPUSCULAR VOLUME 78 fL (79.0-98.0); MONOCYTES # (AUTO) 0.8 K/uL (0.0-1.0); MONOCYTES % (AUTO) 4.9 % (1.7-9.3); NEUTROPHILS # (AUTO) 15.2 K/uL (1.8-7.7); NEUTROPHILS % (AUTO) 88.7 % (40.0-70.0); PLATELET COUNT (AUTO) 260 K/uL (130-430); RED BLOOD CELL COUNT(AUTO) 3.34 MIL/uL (4.2-6.2); RED CELL DISTRIBUTION WIDTH 18.1 % (9.0-15.0); WHITE BLOOD COUNT (AUTO) 17.1 K/uL (4.8-10.8)
[2021-09-14] MEDS: BUDESONIDE 0.5 MG/2 ML AMPUL.NEB INH SCH ×2 (07:18→19:10)
[2021-09-14 07:31] LABS: CREATININE 4.72 mg/dL (0.55-1.30); POTASSIUM 5.2 mmol/L (3.5-5.1)
[2021-09-14] MEDS: PANTOPRAZOLE SODIUM 40 MG/VIAL (PROTONIX) IVP SCH (08:35)
[2021-09-14] MEDS: HEPARIN SODIUM,PORCINE 5,000 UNITS/ML VIAL SUBCUT SCH ×2 (08:38→21:37)
[2021-09-14 08:41] LABS: VANCOMYCIN,RANDOM 15.7 ug/mL
[2021-09-14] MEDS ORDERED: BISACODYL 10 MG/SUPPOSITORY RC ONE (09:00)
[2021-09-14] MEDS ORDERED: HEPARIN SODIUM, PORCINE 10,000 UNITS/ 10 ML VIAL MC ONE (11:00)
[2021-09-14] MEDS ORDERED: HEPARIN SODIUM,PORCINE 5,000 UNITS/ML VIAL ONE (11:16)
[2021-09-14] MEDS ORDERED: VANCOMYCIN HCL 1,000 MG in D5W 250 ML IV ONE (17:00)
[2021-09-14] MEDS: PROPOFOL DRIP 100 ML IV PRN (18:53)
[2021-09-14 22:37] LABS: CSF APPEARANCE CLEAR (CLEAR); CSF COLOR COLORLESS (COLORLESS)
[2021-09-14 23:33] LABS: CSF RED BLOOD CELL COUNT #1 104 /uL (0-0); CSF RED BLOOD CELL COUNT #4 84 /uL (0-0); CSF WHITE BLOOD CELL COUNT #1 0 /uL (0-5); CSF WHITE BLOOD CELL COUNT #4 2 /uL (0-5)
[2021-09-14 23:35] LABS: CSF GLUCOSE 133 mg/dL (40-70); CSF PROTEIN 22 mg/dL (15-45)
[2021-09-15] VITALS (29 sets, daily range): BP systolic 101–131
[2021-09-15] MEDS: NOREPINEPHRINE BITARTRATE 16 MG in NS 234 ML IV PRN ×2 (03:02→14:47)
[2021-09-15] MEDS: NACL 0.9% 1,000 ML IV SCH ×3 (03:03→21:25)
[2021-09-15] MEDS: AMIODARONE HCL 200 MG TABLET PO SCH ×3 (05:23→21:24)
[2021-09-15 06:23] LABS: BASOPHILS # (AUTO) 0.2 K/uL (0.0-0.2); EOSINOPHILS # (AUTO) 0.5 K/uL (0.0-0.4); EOSINOPHILS % (AUTO) 2.5 % (0.0-4.0); HEMATOCRIT 24.3 % (36-48); HEMOGLOBIN 8.1 g/dL (12.0-16.0); LYMPHOCYTES # (AUTO) 0.9 K/uL (1.0-5.5); LYMPHOCYTES % (AUTO) 4.1 % (20.5-51.5); MEAN CORPUSCULAR HEMOGLOBIN 26 pg (27-31); MEAN CORPUSCULAR HGB CONC 34 % (32-36); MEAN CORPUSCULAR VOLUME 77 fL (79.0-98.0); MONOCYTES # (AUTO) 0.5 K/uL (0.0-1.0); MONOCYTES % (AUTO) 2.5 % (1.7-9.3); NEUTROPHILS # (AUTO) 18.9 K/uL (1.8-7.7); PLATELET COUNT (AUTO) 303 K/uL (130-430); RED BLOOD CELL COUNT(AUTO) 3.17 MIL/uL (4.2-6.2); RED CELL DISTRIBUTION WIDTH 18.1 % (9.0-15.0); WHITE BLOOD COUNT (AUTO) 21.1 K/uL (4.8-10.8)
[2021-09-15 06:41] LABS: CREATININE 3.98 mg/dL (0.55-1.30); POTASSIUM 4.5 mmol/L (3.5-5.1)
[2021-09-15] MEDS: BUDESONIDE 0.5 MG/2 ML AMPUL.NEB INH SCH ×2 (08:06→19:10)
[2021-09-15] MEDS: PANTOPRAZOLE SODIUM 40 MG/VIAL (PROTONIX) IVP SCH (08:29)
[2021-09-15] MEDS: HEPARIN SODIUM,PORCINE 5,000 UNITS/ML VIAL SUBCUT SCH ×2 (08:35→21:33)
[2021-09-15] MEDS: INSULIN REGULAR, HUMAN 100 UNITS in NS 99 ML IV PRN ×2 (10:33)
[2021-09-15] MEDS: PROPOFOL DRIP 100 ML IV PRN ×2 (14:31→18:25)
[2021-09-15] MEDS: ALBUTEROL SULFATE 0.083% 2.5 MG/3 ML VIAL.NEB INH PRN ×2 (14:41→16:30)
[2021-09-15 15:00] LABS: NEUTROPHILS % (AUTO) 89.9 % (40.0-70.0)
[2021-09-16] VITALS (33 sets, daily range): BP systolic 103–156
[2021-09-16] MEDS: PROPOFOL DRIP 100 ML IV PRN ×3 (01:24→12:05)
[2021-09-16] MEDS ORDERED: NOREPINEPHRINE 4 MG/4 ML VIAL IV ONE (02:35)
[2021-09-16] MEDS: AMIODARONE HCL 200 MG TABLET PO SCH ×3 (06:23→21:45)
[2021-09-16 06:41] LABS: BASOPHILS # (AUTO) 0.1 K/uL (0.0-0.2); BASOPHILS % (AUTO) 0.5 % (0.0-2.0); EOSINOPHILS # (AUTO) 0.2 K/uL (0.0-0.4); EOSINOPHILS % (AUTO) 1.2 % (0.0-4.0); HEMATOCRIT 23.3 % (36-48); HEMOGLOBIN 7.5 g/dL (12.0-16.0); LYMPHOCYTES # (AUTO) 1.5 K/uL (1.0-5.5); LYMPHOCYTES % (AUTO) 7.5 % (20.5-51.5); MEAN CORPUSCULAR HEMOGLOBIN 25 pg (27-31); MEAN CORPUSCULAR HGB CONC 32 % (32-36); MEAN CORPUSCULAR VOLUME 78 fL (79.0-98.0); MONOCYTES % (AUTO) 4.9 % (1.7-9.3); NEUTROPHILS # (AUTO) 16.9 K/uL (1.8-7.7); NEUTROPHILS % (AUTO) 85.9 % (40.0-70.0); PLATELET COUNT (AUTO) 262 K/uL (130-430); RED CELL DISTRIBUTION WIDTH 17.7 % (9.0-15.0); WHITE BLOOD COUNT (AUTO) 19.7 K/uL (4.8-10.8)
[2021-09-16 06:46] LABS: CREATININE 4.84 mg/dL (0.55-1.30); POTASSIUM 5.1 mmol/L (3.5-5.1)
[2021-09-16 06:54] LABS: CALCIUM 6.6 mg/dL (8.4-11.0)
[2021-09-16] MEDS: BUDESONIDE 0.5 MG/2 ML AMPUL.NEB INH SCH ×2 (07:08→20:15)
[2021-09-16 07:24] LABS: VANCOMYCIN,RANDOM 20.4 ug/mL
[2021-09-16] MEDS: NACL 0.9% 1,000 ML IV SCH (08:36)
[2021-09-16] MEDS: HEPARIN SODIUM,PORCINE 5,000 UNITS/ML VIAL SUBCUT SCH ×2 (09:00→21:45)
[2021-09-16] MEDS ORDERED: HEPARIN SODIUM,PORCINE 5,000 UNITS/ML VIAL MC ONE (09:00)
[2021-09-16] MEDS: PANTOPRAZOLE SODIUM 40 MG/VIAL (PROTONIX) IVP SCH (12:16)
[2021-09-16] MEDS ORDERED: VANCOMYCIN HCL 1 GM/NS PREMIX 250 ML IV ONE (17:00)
[2021-09-17] VITALS (28 sets, daily range): BP systolic 96–135
[2021-09-17] MEDS: NACL 0.9% 1,000 ML IV SCH ×2 (00:03→04:36)
[2021-09-17] MEDS: PROPOFOL DRIP 100 ML IV PRN ×2 (04:24→19:48)
[2021-09-17] MEDS: AMIODARONE HCL 200 MG TABLET PO SCH ×3 (05:48→21:35)
[2021-09-17 06:35] LABS: CREATININE 4.08 mg/dL (0.55-1.30); POTASSIUM 4.3 mmol/L (3.5-5.1)
[2021-09-17] MEDS: NOREPINEPHRINE BITARTRATE 16 MG in NS 234 ML IV PRN (06:51)
[2021-09-17] MEDS: BUDESONIDE 0.5 MG/2 ML AMPUL.NEB INH SCH ×2 (07:39→18:50)
[2021-09-17 09:38] LABS: BASOPHILS # (AUTO) 0.1 K/uL (0.0-0.2); BASOPHILS % (AUTO) 0.6 % (0.0-2.0); EOSINOPHILS # (AUTO) 0.2 K/uL (0.0-0.4); EOSINOPHILS % (AUTO) 1.1 % (0.0-4.0); HEMATOCRIT 22.7 % (36-48); HEMOGLOBIN 7.3 g/dL (12.0-16.0); LYMPHOCYTES # (AUTO) 1.5 K/uL (1.0-5.5); MEAN CORPUSCULAR HEMOGLOBIN 25 pg (27-31); MEAN CORPUSCULAR HGB CONC 32 % (32-36); MEAN CORPUSCULAR VOLUME 78 fL (79.0-98.0); MONOCYTES # (AUTO) 0.6 K/uL (0.0-1.0); MONOCYTES % (AUTO) 3.6 % (1.7-9.3); NEUTROPHILS % (AUTO) 85.7 % (40.0-70.0); PLATELET COUNT (AUTO) 274 K/uL (130-430); RED BLOOD CELL COUNT(AUTO) 2.92 MIL/uL (4.2-6.2); WHITE BLOOD COUNT (AUTO) 16.3 K/uL (4.8-10.8)
[2021-09-17] MEDS: PANTOPRAZOLE SODIUM 40 MG/VIAL (PROTONIX) IVP SCH (09:52)
[2021-09-17] MEDS: HEPARIN SODIUM,PORCINE 5,000 UNITS/ML VIAL SUBCUT SCH ×2 (09:53→21:17)
[2021-09-17] MEDS ORDERED: MICAFUNGIN SODIUM 100 MG in NS 100 ML IV SCH (18:45)
[2021-09-17] MEDS ORDERED: INSULIN GLARGINE 100 UNITS/ML 10 ML VIAL SUBCUT ONE (19:00)
[2021-09-17] MEDS: INSULIN LISPRO SLIDING SCALE 100 UNITS/ML VIAL (humaLOG) SUBCUT PRN (20:08)
[2021-09-17] MEDS: METOPROLOL TARTRATE 5 MG/5 ML AMPUL IVP PRN (21:22)
[2021-09-18] VITALS (34 sets, daily range): BP systolic 74–163
[2021-09-18] MEDS: INSULIN LISPRO SLIDING SCALE 100 UNITS/ML VIAL (humaLOG) SUBCUT PRN ×6 (03:13→23:09)
[2021-09-18] MEDS: METOPROLOL TARTRATE 5 MG/5 ML AMPUL IVP PRN ×2 (03:14→16:12)
[2021-09-18] MEDS ORDERED: NOREPINEPHRINE 4 MG/4 ML VIAL IV ONE (04:40)
[2021-09-18] MEDS: NOREPINEPHRINE BITARTRATE 16 MG in NS 234 ML IV PRN ×2 (04:52→14:31)
[2021-09-18] MEDS: AMIODARONE HCL 200 MG TABLET PO SCH ×2 (05:22→13:56)
[2021-09-18] MEDS ORDERED: AMIODARONE HCL 200 MG TABLET ONE (05:54)
[2021-09-18] MEDS ORDERED: AMIODARONE HCL 200 MG TABLET PO ONE (06:00)
[2021-09-18 07:44] LABS: ALBUMIN 0.9 g/dL (3.4-4.8); CALCIUM 7.1 mg/dL (8.4-11.0); CREATININE 4.79 mg/dL (0.55-1.30); POTASSIUM 4.8 mmol/L (3.5-5.1); TOTAL BILIRUBIN 3.4 mg/dL (0.0-1.0)
[2021-09-18 08:04] LABS: BASOPHILS # (AUTO) 0.2 K/uL (0.0-0.2); EOSINOPHILS # (AUTO) 0.1 K/uL (0.0-0.4); EOSINOPHILS % (AUTO) 0.6 % (0.0-4.0); HEMATOCRIT 24.1 % (36-48); HEMOGLOBIN 7.6 g/dL (12.0-16.0); LYMPHOCYTES # (AUTO) 2.1 K/uL (1.0-5.5); LYMPHOCYTES % (AUTO) 12.5 % (20.5-51.5); MEAN CORPUSCULAR HEMOGLOBIN 25 pg (27-31); MEAN CORPUSCULAR HGB CONC 32 % (32-36); MEAN CORPUSCULAR VOLUME 77 fL (79.0-98.0); MONOCYTES # (AUTO) 0.7 K/uL (0.0-1.0); MONOCYTES % (AUTO) 3.9 % (1.7-9.3); PLATELET COUNT (AUTO) 344 K/uL (130-430); RED BLOOD CELL COUNT(AUTO) 3.11 MIL/uL (4.2-6.2); RED CELL DISTRIBUTION WIDTH 17.7 % (9.0-15.0)
[2021-09-18 08:11] LABS: WHITE BLOOD COUNT (AUTO) 17.1 K/uL (4.8-10.8)
[2021-09-18 08:50] LABS: VANCOMYCIN,RANDOM 25.8 ug/mL
[2021-09-18] MEDS: HEPARIN SODIUM,PORCINE 5,000 UNITS/ML VIAL SUBCUT SCH ×2 (09:00→20:18)
[2021-09-18] MEDS: PANTOPRAZOLE SODIUM 40 MG/VIAL (PROTONIX) IVP SCH (09:43)
[2021-09-18] MEDS: BUDESONIDE 0.5 MG/2 ML AMPUL.NEB INH SCH ×2 (09:44→19:10)
[2021-09-18] MEDS: ALBUMIN HUMAN 25% 50 ML IV SCH ×3 (09:46→20:34)
[2021-09-18] MEDS: MICAFUNGIN SODIUM 100 MG in NS 100 ML IV SCH (09:47)
[2021-09-18] MEDS: INSULIN GLARGINE 100 UNITS/ML 10 ML VIAL SUBCUT SCH ×2 (09:58→20:42)
[2021-09-18 13:06] LABS: VDRL, CSF Non Reactive (Non Rea:<1:1)
[2021-09-18] MEDS: dilTIAZem HCL IVP 5 MG/ML VIAL IVP PRN ×2 (13:54→20:44)
[2021-09-18] MEDS ORDERED: POLYETHYLENE GLYCOL 3350, 17 GM/ POWD.PACK NG ONE (18:00)
[2021-09-18] MEDS ORDERED: MINERAL OIL 30 ML UDC NG ONE (18:00)
[2021-09-18] MEDS: PROPOFOL DRIP 100 ML IV PRN (21:22)
[2021-09-18] MEDS ORDERED: AMIODARONE HCL 450 MG/9 ML VIAL IV ONE (21:41)
[2021-09-18] MEDS ORDERED: AMIODARONE HCL 450 MG in D5W 241 ML IV SCH (21:45)
[2021-09-19] VITALS (31 sets, daily range): BP systolic 80–148
[2021-09-19] MEDS ORDERED: NOREPINEPHRINE 4 MG/4 ML VIAL IV ONE (01:54)
[2021-09-19] MEDS: INSULIN LISPRO SLIDING SCALE 100 UNITS/ML VIAL (humaLOG) SUBCUT PRN ×5 (03:26→18:45)
[2021-09-19 06:09] LABS: HEMATOCRIT 23.5 % (36-48); HEMOGLOBIN 7.7 g/dL (12.0-16.0); MEAN CORPUSCULAR HEMOGLOBIN 25 pg (27-31); MEAN CORPUSCULAR HGB CONC 33 % (32-36); MEAN CORPUSCULAR VOLUME 76 fL (79.0-98.0); PLATELET COUNT (AUTO) 409 K/uL (130-430); RED BLOOD CELL COUNT(AUTO) 3.09 MIL/uL (4.2-6.2); RED CELL DISTRIBUTION WIDTH 17.7 % (9.0-15.0)
[2021-09-19 07:00] LABS: CALCIUM 7.1 mg/dL (8.4-11.0); CREATININE 5.97 mg/dL (0.55-1.30); POTASSIUM 5.5 mmol/L (3.5-5.1)
[2021-09-19] MEDS ORDERED: BISACODYL 10 MG/SUPPOSITORY RC ONE (07:15)
[2021-09-19] MEDS ORDERED: fentaNYL CITRATE/PF 100 MCG/2 ML AMP ONE (07:27)
[2021-09-19] MEDS: BUDESONIDE 0.5 MG/2 ML AMPUL.NEB INH SCH (07:43)
[2021-09-19] MEDS ORDERED: SODIUM PHOSPHATE,MONO-DIBASIC 133 ML ENEMA RC PRN (08:00)
[2021-09-19] MEDS ORDERED: fentaNYL CITRATE/PF 100 MCG/2 ML AMP IVP ONE (08:00)
[2021-09-19] MEDS ORDERED: MAGNESIUM CITRATE 300 ML ORAL SOLUTION PO ONE (08:30)
[2021-09-19] MEDS: INSULIN GLARGINE 100 UNITS/ML 10 ML VIAL SUBCUT SCH ×2 (08:55→20:58)
[2021-09-19] MEDS: PANTOPRAZOLE SODIUM 40 MG/VIAL (PROTONIX) IVP SCH (08:57)
[2021-09-19 08:58] LABS: ALBUMIN 1.5 g/dL (3.4-4.8); BILIRUBIN,DIRECT 4.2 mg/dL (0.0-0.3)
[2021-09-19 09:01] LABS: WHITE BLOOD COUNT (AUTO) 19.7 K/uL (4.8-10.8)
[2021-09-19] MEDS: MICAFUNGIN SODIUM 100 MG in NS 100 ML IV SCH (09:02)
[2021-09-19] MEDS: HEPARIN SODIUM,PORCINE 5,000 UNITS/ML VIAL SUBCUT SCH ×2 (09:41→20:45)
[2021-09-19] MEDS: NOREPINEPHRINE BITARTRATE 16 MG in NS 234 ML IV PRN (10:10)
[2021-09-19 11:44] LABS: ATYPICAL LYMPHOCYTES % 0 % (0-0); BAND % (MANUAL) 18 % (0-6); BASOPHILS % (MANUAL) 0 % (0-2); EOSINOPHILS % (MANUAL) 0 % (0-7); LYMPHOCYTES % (MANUAL) 10 % (20-46); METAMYELOCYTES % 2 % (0-0); MONOCYTES % (MANUAL) 6 % (0-11); MYELOCYTES % 3 % (0-0)
[2021-09-19] MEDS ORDERED: HEPARIN SODIUM,PORCINE 5,000 UNITS/ML VIAL MC ONE (11:45)
[2021-09-19] MEDS: PROPOFOL DRIP 100 ML IV PRN (11:46)
[2021-09-19] MEDS: METOCLOPRAMIDE HCL 10 MG/2 ML VIAL IVP SCH ×2 (14:33→22:36)
[2021-09-19] MEDS ORDERED: PHENYLEPHRINE HCL 100 MG in NS 240 ML IV PRN (16:30)
[2021-09-19] MEDS ORDERED: AMIODARONE HCL 200 MG TABLET NG ONE (16:30)
[2021-09-19] MEDS: MINERAL OIL 30 ML UDC PO SCH (17:39)
[2021-09-19] MEDS: POLYETHYLENE GLYCOL 3350, 17 GM/ POWD.PACK PO SCH (20:13)
[2021-09-19] MEDS: ONDANSETRON HCL 4 MG/2 ML VIAL IVP PRN (20:41)
[2021-09-19] MEDS: AMIODARONE HCL 200 MG TABLET NG SCH (22:35)
[2021-09-19] MEDS: NOREPINEPHRINE BITARTRATE 32 MG in D5W 218 ML IV SCH (23:07)
[2021-09-20] VITALS (27 sets, daily range): BP systolic 68–169
[2021-09-20] MEDS: ONDANSETRON HCL 4 MG/2 ML VIAL IVP PRN ×2 (03:29→11:59)
[2021-09-20] MEDS: NOREPINEPHRINE BITARTRATE 32 MG in D5W 218 ML IV SCH ×3 (04:05→13:21)
[2021-09-20] MEDS: PROPOFOL DRIP 100 ML IV PRN ×3 (04:09→15:13)
[2021-09-20] MEDS: INSULIN LISPRO SLIDING SCALE 100 UNITS/ML VIAL (humaLOG) SUBCUT PRN ×3 (04:11→15:22)
[2021-09-20] MEDS: METOCLOPRAMIDE HCL 10 MG/2 ML VIAL IVP SCH ×2 (06:54→15:19)
[2021-09-20] MEDS: AMIODARONE HCL 200 MG TABLET NG SCH ×2 (06:55→15:22)
[2021-09-20 07:05] LABS: BASOPHILS # (AUTO) 0.3 K/uL (0.0-0.2); EOSINOPHILS # (AUTO) 0.2 K/uL (0.0-0.4); EOSINOPHILS % (AUTO) 0.7 % (0.0-4.0); HEMOGLOBIN 7.2 g/dL (12.0-16.0); LYMPHOCYTES # (AUTO) 3.5 K/uL (1.0-5.5); LYMPHOCYTES % (AUTO) 12.8 % (20.5-51.5); MEAN CORPUSCULAR HEMOGLOBIN 26 pg (27-31); MEAN CORPUSCULAR HGB CONC 34 % (32-36); MEAN CORPUSCULAR VOLUME 76 fL (79.0-98.0); MONOCYTES # (AUTO) 0.9 K/uL (0.0-1.0); MONOCYTES % (AUTO) 3.5 % (1.7-9.3); NEUTROPHILS # (AUTO) 22.2 K/uL (1.8-7.7); PLATELET COUNT (AUTO) 408 K/uL (130-430); RED BLOOD CELL COUNT(AUTO) 2.81 MIL/uL (4.2-6.2); RED CELL DISTRIBUTION WIDTH 18.4 % (9.0-15.0); WHITE BLOOD COUNT (AUTO) 27.1 K/uL (4.8-10.8)
[2021-09-20] MEDS: BUDESONIDE 0.5 MG/2 ML AMPUL.NEB INH SCH (07:20)
[2021-09-20] MEDS ORDERED: SODIUM PHOSPHATE,MONO-DIBASIC 133 ML ENEMA RC ONE (07:30)
[2021-09-20] MEDS ORDERED: PANTOPRAZOLE SODIUM 40 MG/VIAL (PROTONIX) IVP ONE (07:30)
[2021-09-20 07:31] LABS: ALBUMIN 1.2 g/dL (3.4-4.8); CREATININE 5.66 mg/dL (0.55-1.30)
[2021-09-20 07:52] LABS: POTASSIUM 6.1 mmol/L (3.5-5.1)
[2021-09-20 08:17] LABS: HEMATOCRIT 21.4 % (36-48)
[2021-09-20 08:26] LABS: VANCOMYCIN,RANDOM 19.7 ug/mL
[2021-09-20] MEDS: MICAFUNGIN SODIUM 100 MG in NS 100 ML IV SCH (08:33)
[2021-09-20] MEDS: POLYETHYLENE GLYCOL 3350, 17 GM/ POWD.PACK PO SCH (08:33)
[2021-09-20] MEDS: HEPARIN SODIUM,PORCINE 5,000 UNITS/ML VIAL SUBCUT SCH (08:34)
[2021-09-20] MEDS ORDERED: DIATR MEGLU/DIATRIZ SOD 30 ML SOLUTION PO ONE ×2 (08:34→11:20)
[2021-09-20] MEDS: INSULIN GLARGINE 100 UNITS/ML 10 ML VIAL SUBCUT SCH (08:41)
[2021-09-20] MEDS: MINERAL OIL 30 ML UDC PO SCH (17:45)
[2021-09-20] MEDS ORDERED: NALOXONE HCL 0.4 MG/ML AMP (NARCAN) IVP PRN (18:00)
[2021-09-20] MEDS ORDERED: MORPHINE SULFATE IN 0.9 % NACL 100 ML IV PRN (18:00)
[2021-09-20] MEDS ORDERED: LORazepam 2 MG/ML VIAL IVP PRN (18:00)
[2021-09-20] MEDS ORDERED: PANTOPRAZOLE SODIUM 40 MG/VIAL (PROTONIX) IVP SCH (21:00)
== END 2021-09-20 20:22 | DRG 870 ==
LOC: SED 14:26 → SIC 21:43
PROVIDERS: ADMIT General Practice; ATTEND General Practice
PROC: 5A1955Z Respiratory Ventilation, Greater than 96 Consecutive Hours (ICD-10-PCS; principal; 2021-09-05)
PROC: 0BH17EZ Insertion of Endotracheal Airway into Trachea, Via Natural or Artificial Opening (ICD-10-PCS; 2021-09-05)
PROC: 5A1D70Z Performance of Urinary Filtration, Intermittent, Less than 6 Hours Per Day (ICD-10-PCS; 2021-09-07)
PROC: 06HY33Z Insertion of Infusion Device into Lower Vein, Percutaneous Approach (ICD-10-PCS; 2021-09-07)
PROC: 5A1D70Z Performance of Urinary Filtration, Intermittent, Less than 6 Hours Per Day (ICD-10-PCS; 2021-09-08)
PROC: 02HV33Z Insertion of Infusion Device into Superior Vena Cava, Percutaneous Approach (ICD-10-PCS; 2021-09-09)
PROC: B548ZZA Ultrasonography of Superior Vena Cava, Guidance (ICD-10-PCS; 2021-09-09)
PROC: 5A1D70Z Performance of Urinary Filtration, Intermittent, Less than 6 Hours Per Day (ICD-10-PCS; 2021-09-09)
PROC: 5A1D70Z Performance of Urinary Filtration, Intermittent, Less than 6 Hours Per Day (ICD-10-PCS; 2021-09-11)
PROC: 5A1D70Z Performance of Urinary Filtration, Intermittent, Less than 6 Hours Per Day (ICD-10-PCS; 2021-09-12)
PROC: 5A1D70Z Performance of Urinary Filtration, Intermittent, Less than 6 Hours Per Day (ICD-10-PCS; 2021-09-14)
PROC: 009U3ZX Drainage of Spinal Canal, Percutaneous Approach, Diagnostic (ICD-10-PCS; 2021-09-14)
PROC: 5A1D70Z Performance of Urinary Filtration, Intermittent, Less than 6 Hours Per Day (ICD-10-PCS; 2021-09-16)
PROC: 5A1D70Z Performance of Urinary Filtration, Intermittent, Less than 6 Hours Per Day (ICD-10-PCS; 2021-09-19)
PROC: 5A2204Z Restoration of Cardiac Rhythm, Single (ICD-10-PCS; 2021-09-19)
DX: A41.9 Sepsis, unspecified organism (principal); E11.10 Type 2 diabetes mellitus with ketoacidosis without coma; G93.41 Metabolic encephalopathy; N17.0 Acute kidney failure with tubular necrosis; R65.21 Severe sepsis with septic shock; J96.01 Acute respiratory failure with hypoxia; E44.0 Moderate protein-calorie malnutrition; E87.1 Hypo-osmolality and hyponatremia; I48.92 Unspecified atrial flutter; Z68.42 Body mass index [BMI] 45.0-49.9, adult; E72.20 Disorder of urea cycle metabolism, unspecified; I48.0 Paroxysmal atrial fibrillation; K80.20 Calculus of gallbladder without cholecystitis without obstruction; Z66 Do not resuscitate; D64.9 Anemia, unspecified; E11.22 Type 2 diabetes mellitus with diabetic chronic kidney disease; E66.9 Obesity, unspecified; E83.51 Hypocalcemia; E86.0 Dehydration; Z20.822 Contact with and (suspected) exposure to COVID-19; E87.5 Hyperkalemia; N18.9 Chronic kidney disease, unspecified; Z79.4 Long term (current) use of insulin; Z91.14 Patient's other noncompliance with medication regimen; Z79.84 Long term (current) use of oral hypoglycemic drugs
CPT/HCPCS: 36415; 36600; 70450-TC; 71045; 72100-TC; 74018; 76376; 76705; 76770; 78226; 80048; 80053; 80061; 80076; 80202; 80307; 81000; 82009; 82140; 82247; 82533; 82550; 82553; 82803-TC; 82947; 82962; 83036; 83605; 83690; 83735; 84100; 84157; 85007; 85025; 85027; 85048; 85610-TC; 85730-TC; 86592; 86788; 86789; 87040; 87070-TC; 87081; 87205-TC; 88108; 89051-TC; 93005; 93306; 94002; 94003; 94640; 95816; 96365; 96372; 96375; 99291; A9537; C9113; G0480; G0481; G0482; J0610; J0692; J1644; J1815; J2060; J2248; J2270; J2370; J2405; J2543; J2704; J2765; J3010; J3370; J3490; J7050; J7060; J7613; J7626; P9046; Q9964